=== PATIENT | female | born 1950 | race American Indian/Alaskan Native ===

== ENCOUNTER 2017-07-05 11:21 | Emergency (ER) | payer BC ==
[2017-07-05] MEDS ORDERED: PEPCID IV ONE (12:54)
[2017-07-05] MEDS ORDERED: TORADOL IV ONE (12:54)
--- NOTE | 2017-07-05 12:56 | Emergency Department Report ---
Blank Doc - Documentation Documentation: Patient is a 66-year-old black female with past medical history of hysterectomy secondary to uterine fibroids but otherwise no additional abdominal surgeries who presented with abdominal pain. Patient states that for the past 3-4 days she has had epigastric pain that she just states it is a sharp burning sensation that is constant but sometimes does heighten in severity. Patient is has just very mild nausea but no vomiting. Patient states that 5 days ago she had a day and half of diarrhea and now is having this pain. Patient has had no history of recent bloody bowel movements. Patient denies any fevers chills cough chest pain at this time. Patient removed to a treatment area to get Ms. for symptomatic relief we'll also check labs and CT abdomen and pelv to rule out acute life-threatening condition. Patient V reassessment HARLEEN. Is
[2017-07-05 13:15] LABS: Basophils % (Auto) 0.7 % (0.0-1.8); Eosinophils # (Auto) 0.2 K/mm3 (0.0-0.4); Eosinophils % (Auto) 3.2 % (0.0-4.3); Hematocrit 42.1 % (30.3-42.9); Hemoglobin 13.6 gm/dl (10.1-14.3); Lymphocytes # (Auto) 2.2 K/mm3 (1.2-5.4); Lymphocytes % (Auto) 45.1 % (13.4-35.0); Mean Corpuscular HGB Conc 32 % (30-34); Mean Corpuscular Hemoglobin 30 pg (28-32); Mean Corpuscular Volume 92 fl (79-97); Monocytes # (Auto) 0.7 K/mm3 (0.0-0.8); Platelet Count 252 K/mm3 (140-440); Red Blood Count 4.56 M/mm3 (3.65-5.03); Red Cell Distribution Width 13.8 % (13.2-15.2)
[2017-07-05 13:34] LABS: Alanine Aminotransferase 13 units/L (7-56); BUN/Creatinine Ratio 20; Blood Urea Nitrogen 14 mg/dL (7-17); Calcium 8.9 mg/dL (8.4-10.2); Hemolysis Index 8; Lipase 23 units/L (13-60)
--- NOTE | 2017-07-05 14:37 | Cat Scan Report ---
CT ABDOMEN PELVIS WITH CONTRAST: HISTORY: abdominal pain. COMPARISON: none. TECHNIQUE: Helical CT in 1.25mm intervals following IV contrast. Sagittal and coronal reconstructions. FINDINGS: Lung bases: Normal. Liver: Normal. Biliary system: Normal. Pancreas: Normal. Spleen: Normal. Kidneys/ureters/bladder: Normal. Adrenal glands: Normal. Aorta: Normal. Intestines: Normal. Appendix: Normal. Pelvic viscera: Normal. Ascites: None. Adenopathy: None. Musculoskeletal: Normal. IMPRESSION: Unremarkable CT scan of the abdomen and pelvis with contrast.
--- NOTE | 2017-07-05 14:45 | Emergency Department Report ---
ED Abdominal Pain HPI - General Chief Complaint: Abdominal Pain Stated Complaint: ABD PAIN Time Seen by Provider: 07/05/17 12:49 Source: patient Mode of arrival: Ambulatory Limitations: No Limitations - History of Present Illness Initial Comments: Patient is a 66-year-old black female with past medical history of hysterectomy secondary to uterine fibroids but otherwise no additional abdominal surgeries who presented with abdominal pain. Patient states that for the past 3-4 days she has had epigastric pain that she just states it is a sharp burning sensation that is constant but sometimes does heighten in severity. Patient is has just very mild nausea but no vomiting. Patient states that 5 days ago she had a day and half of diarrhea and now is having this pain. Patient has had no history of recent bloody bowel movements. Patient denies any fevers chills cough chest pain at this time. Nothing makes pain better and nothing makes it worse. Pain is 10 out of 10, burning sensation. She says she did not take any medication. She does have a primary care physician whom she did not call. MD Complaint: abdominal pain Onset/Timin -: days(s) Location: epigastric Radiation: none Migration to: no migration Severity: severe Severity scale (0 -10): 10 Quality: burning Consistency: constant Improves With: nothing Worsens With: eating Context: other (unknown) Associated Symptoms: nausea, diarrhea. denies: vomiting, fever, chills, constipation, dysuria, hematemesis, hematochezia, melena, hematuria, anorexia, syncope Treatments Prior to Arrival: other (none) - Related Data Previous Rx's Medication Instructions Recorded Last Taken Type Ciprofloxacin HCl [Cipro] 500 mg PO Q12H 5 Days #10 tablet 07/05/17 Unknown Rx Dicyclomine [Bentyl] 40 mg PO Q8H PRN #12 tablet 07/05/17 Unknown Rx Omeprazole 40 mg PO DAILY 30 Days #30 07/05/17 Unknown Rx capsule. Ondansetron [Zofran Odt] 4 mg PO Q6H PRN #12 tab.rapdis 07/05/17 Unknown Rx Allergies Allergy/AdvReac Type Severity Reaction Status Date / Time No Known Allergies Allergy Unverified 03/25/14 14:34 ED Review of Systems ROS: Stated complaint: ABD PAIN Other details as noted in HPI Comment: All other systems reviewed and negative Constitutional: no symptoms reported ENT: denies: throat pain Respiratory: no symptoms reported Cardiovascular: denies: chest pain, palpitations, dyspnea on exertion, edema, syncope Gastrointestinal: abdominal pain, nausea, diarrhea. denies: vomiting, constipation, hematemesis, melena, hematochezia Genitourinary: denies: dysuria, hematuria Musculoskeletal: denies: back pain, joint swelling, arthralgia, myalgia Skin: denies: rash Neurological: denies: headache, weakness, numbness, paresthesias, abnormal gait , vertigo ED Past Medical Hx - Past Medical History Previous Medical History?: Yes Hx Diabetes: Yes Hx Arthritis: Yes (right knee) - Surgical History Past Surgical History?: Yes Additional Surgical History: Removal of fibroid tumors, Hysterectomy - Family History Family history: hypertension - Social History Smoking Status: Former Smoker Substance Use Type: Alcohol - Medications Home Medications: Home Medications Medication Instructions Recorded Confirmed Last Taken Type Ciprofloxacin HCl [Cipro] 500 mg PO Q12H 5 Days #10 tablet 07/05/17 Unknown Rx Dicyclomine [Bentyl] 40 mg PO Q8H PRN #12 tablet 07/05/17 Unknown Rx Omeprazole 40 mg PO DAILY 30 Days #30 07/05/17 Unknown Rx capsule. Ondansetron [Zofran Odt] 4 mg PO Q6H PRN #12 tab.rapdis 07/05/17 Unknown Rx ED Physical Exam - General Limitations: No Limitations General appearance: alert, in no apparent distress - Head Head exam: Present: atraumatic, normocephalic, normal inspection - Eye Eye exam: Present: normal appearance, PERRL, EOMI Pupils: Present: normal accommodation - ENT ENT exam: Present: normal exam, normal orophraynx, mucous membranes moist, TM's normal bilaterally, normal external ear exam - Neck Neck exam: Present: normal inspection, full ROM, other (no C-spine tenderness). Absent: tenderness, lymphadenopathy - Respiratory Respiratory exam: Present: normal lung sounds bilaterally. Absent: respiratory distress, chest wall tenderness - Cardiovascular Cardiovascular Exam: Present: regular rate, normal rhythm, normal heart sounds - GI/Abdominal GI/Abdominal exam: Present: soft, normal bowel sounds. Absent: distended, tenderness, guarding, rebound, rigid, organomegaly, mass, bruit, pulsatile mass , hernia - Extremities Exam Extremities exam: Present: normal inspection, full ROM, normal capillary refill , other (no clubbing, cyanosis or edema. +2 pulses throughout extremities and no neurovascular compromise). Absent: tenderness, pedal edema, joint swelling, calf tenderness - Neurological Exam Neurological exam: Present: alert, oriented X3, normal gait - Psychiatric Psychiatric exam: Present: normal affect, normal mood - Skin Skin exam: Present: warm, dry, intact, normal color. Absent: rash ED Course Vital Signs 07/05/17 07/05/17 11:26 13:38 Temperature 97.9 F Pulse Rate 60 Respiratory 18 18 Rate Blood Pressure 140/62 O2 Sat by Pulse 99 Oximetry - Reevaluation(s) Reevaluation #1: 07/05/17 14:56 She has screened by Dr. Donal Davis. Patient received Toradol 15 mg IV and Pepcid [address] scan of the abdomen and pelvis shows no acute abnormalities. She says she feels better with pain medication and she is awaiting urinalysis to be collected and sent. Patient able to tolerate oral fluids in the emergency room 07/05/17 16:23 07/05/17 16:26 Reevaluation #2: 07/05/17 16:23 Upon reevaluation, abdominal pain patient said she feels a lot better. She says the medication that she got relieved her stomach pain. ED Medical Decision Making - Lab Data Result diagrams: 07/05/17 12:48 07/05/17 12:48 Lab Results 07/05/17 07/05/17 07/05/17 Range/Units 11:28 12:48 12:48 WBC 4.8 (4.5-11.0) K/mm3 RBC 4.56 (3.65-5.03) M/mm3 Hgb 13.6 (10.1-14.3) gm/dl Hct 42.1 (30.3-42.9) % MCV 92 (79-97) fl MCH 30 (28-32) pg MCHC 32 (30-34) % RDW 13.8 (13.2-15.2) % Plt Count 252 (140-440) K/mm3 Lymph % (Auto) 45.1 H (13.4-35.0) % Menard % (Auto) 14.0 H (0.0-7.3) % Eos % (Auto) 3.2 (0.0-4.3) % Baso % (Auto) 0.7 (0.0-1.8) % Lymph # 2.2 (1.2-5.4) K/mm3 Menard # 0.7 (0.0-0.8) K/mm3 Eos # 0.2 (0.0-0.4) K/mm3 Baso # 0.0 (0.0-0.1) K/mm3 Seg Neutrophils % 37.0 L (40.0-70.0) % Seg Neutrophils # 1.8 (1.8-7.7) K/mm3 Sodium 139 (137-145) mmol/L Potassium 4.0 (3.6-5.0) mmol/L Chloride 99.5 (98-107) mmol/L Carbon Dioxide 24 (22-30) mmol/L Anion Gap 20 mmol/L BUN 14 (7-17) mg/dL Creatinine 0.7 (0.7-1.2) mg/dL Estimated GFR > 60 ml/min BUN/Creatinine Ratio 20 % Glucose 97 (65-100) mg/dL POC Glucose 109 H (70-105) Calcium 8.9 (8.4-10.2) mg/dL Total Bilirubin 0.40 (0.1-1.2) mg/dL AST 18 (5-40) units/L ALT 13 (7-56) units/L Alkaline Phosphatase 74 (35-129) units/L Total Protein 7.1 (6.3-8.2) g/dL Albumin 4.0 (3.9-5) g/dL Albumin/Globulin Ratio 1.3 % Lipase 23 (13-60) units/L Urine Color (Yellow) Urine Turbidity (Clear) Urine pH (5.0-7.0) Ur Specific [place] (1.003-1.030) Urine Protein (Negative) mg/dL Urine Glucose (UA) (Negative) mg/dL Urine Ketones (Negative) mg/dL Urine Blood (Negative) Urine Nitrite (Negative) Urine Bilirubin (Negative) Urine Urobilinogen (<2.0) mg/dL Ur Leukocyte Esterase (Negative) Urine WBC (Auto) (0.0-6.0) /HPF Urine RBC (Auto) (0.0-6.0) /HPF U Epithel Cells (Auto) (0-13.0) /HPF Urine Mucus /HPF // Range/Units 15:40 WBC (4.5-11.0) K/mm3 RBC (3.65-5.03) M/mm3 Hgb (10.1-14.3) gm/dl Hct (30.3-42.9) % MCV (79-97) fl MCH (28-32) pg MCHC (30-34) % RDW (13.2-15.2) % Plt Count (140-440) K/mm3 Lymph % (Auto) (13.4-35.0) % Menard % (Auto) (0.0-7.3) % Eos % (Auto) (0.0-4.3) % Baso % (Auto) (0.0-1.8) % Lymph # (1.2-5.4) K/mm3 Menard # (0.0-0.8) K/mm3 Eos # (0.0-0.4) K/mm3 Baso # (0.0-0.1) K/mm3 Seg Neutrophils % (40.0-70.0) % Seg Neutrophils # (1.8-7.7) K/mm3 Sodium (137-145) mmol/L Potassium (3.6-5.0) mmol/L Chloride (98-107) mmol/L Carbon Dioxide (22-30) mmol/L Anion Gap mmol/L BUN (7-17) mg/dL Creatinine (0.7-1.2) mg/dL Estimated GFR ml/min BUN/Creatinine Ratio % Glucose (65-100) mg/dL POC Glucose (70-105) Calcium (8.4-10.2) mg/dL Total Bilirubin (0.1-1.2) mg/dL AST (5-40) units/L ALT (7-56) units/L Alkaline Phosphatase (35-129) units/L Total Protein (6.3-8.2) g/dL Albumin (3.9-5) g/dL Albumin/Globulin Ratio % Lipase (13-60) units/L Urine Color Yellow (Yellow) Urine Turbidity Clear (Clear) Urine pH 5.0 (5.0-7.0) Ur Specific [place] 1.060 H (1.003-1.030) Urine Protein <15 mg/dl (Negative) mg/dL Urine Glucose (UA) Neg (Negative) mg/dL Urine Ketones Tr (Negative) mg/dL Urine Blood Mod (Negative) Urine Nitrite Neg (Negative) Urine Bilirubin Neg (Negative) Urine Urobilinogen < 2.0 (<2.0) mg/dL Ur Leukocyte Esterase Sm (Negative) Urine WBC (Auto) 6.0 (0.0-6.0) /HPF Urine RBC (Auto) 3.0 (0.0-6.0) /HPF U Epithel Cells (Auto) 7.0 (0-13.0) /HPF Urine Mucus Few /HPF Urine culture pending - Radiology Data Radiology results: report reviewed CT scan of the abdomen and pelvis with IV contrast revealed normal exam without any acute abnormalities - Medical Decision Making ED course: Patient here complaining abdominal pain with some nausea over 5 days. Pain located to epigastric area and burning. CT scan of the abdomen and pelvis reveal no acute abnormalities please refer to radiology section for details. Laboratory to include CBC stable, chemistry is stable and urinalysis with trace ketone, moderate blood and small amount of leukocyte Estrace. Patient orally hydrated in the emergency room and tolerated well without any nausea or vomiting. She was given Toradol 20 mg IV and Pepcid 20 mg IV. She says she feels better and her pain is gone. Patient with dyspepsia and bladder infection. I discussed CT results and laboratory results the patient along with diagnosis and treatment plan and the need to follow up with her primary care physician and she voiced understanding. Patient discharged home with prescription for prilosec, Zofran, Bentyl and Cipro. Critical care attestation.: If time is entered above; I have spent that time in minutes in the direct care of this critically ill patient, excluding procedure time. ED Disposition Clinical Impression: Acute cystitis with hematuria, Dyspepsia, Nausea alone Abdominal pain Qualifiers: Abdominal location: epigastric Qualified Code(s): R10.13 - Epigastric pain Disposition: - TO HOME OR SELFCARE Is pt being admited?: No Does the pt Need Aspirin: No Condition: Stable Instructions: Abdominal Pain (ED), Gastroesophageal Reflux Disease (ED), Urinary Tract Infection in Women (ED), Acute Nausea and Vomiting (ED) Additional Instructions: Please follow up with stomach doctor as instructed and discharge instruction paperwork Antibiotic for bladder infection Take omeprazole for acid reflux Take Zofran for nausea Increased fluid intake to 2 L of water daily to prevent dehydration. Prescriptions: Ciprofloxacin HCl [Cipro] 500 mg PO Q12H 5 Days #10 tablet Dicyclomine [Bentyl] 40 mg PO Q8H PRN #12 tablet PRN Reason: stomach upset Omeprazole 40 mg PO DAILY 30 Days #30 capsule. Ondansetron [Zofran Odt] 4 mg PO Q6H PRN #12 tab.rapdis PRN Reason: Nausea And Vomiting Referrals: PRIMARY CARE, [Primary Care Provider] - 07/07/17 [facility] [Outside] - 07/07/17 [facility] [Provider Group] - 07/07/17 Forms: Accompanied Note, Work/School Release Form(ED)
[2017-07-05 15:57] LABS: Bilirubin,Urine NEG (Negative); Blood,Urine MOD (Negative); Color,Urine Yellow (Yellow); Mucus,Urine FEW /HPF; Protein,Urine <15 mg/dL mg/dL (Negative); Urobilinogen,Urine < 2.0 mg/dL (<2.0)
[2017-07-05 16:54] VITALS: BP 138/72
== END 2017-07-05 16:54 | disposition home or self-care (01) ==
LOC: ED 11:21
DX: N30.01 Acute cystitis with hematuria (principal); E11.9 Type 2 diabetes mellitus without complications; M17.11 Unilateral primary osteoarthritis, right knee; R19.7 Diarrhea, unspecified; Z87.891 Personal history of nicotine dependence; Z90.710 Acquired absence of both cervix and uterus
CPT/HCPCS: 36415; 74177; 80053; 81001; 82962; 83690; 85025; 87086; 96374; 96375; 99284; J1885; Q9967

== ENCOUNTER 2019-02-18 16:17 | Emergency (ER) | payer BC ==
[2019-02-18 18:08] VITALS: BP 114/78
--- NOTE | 2019-02-18 18:08 | Emergency Department Report ---
Blank Doc - Documentation Documentation: 68-year-old female that presents with URI symptoms. This initial assessment/diagnostic orders/clinical plan/treatment(s) is/are subject to change based on patient's health status, clinical progression and re- assessment by fellow clinical providers in the ED. Further treatment and workup at subsequent clinical providers discretion. Patient/guardians urged not to elope from the ED as their condition may be serious if not clinically assessed and managed. Initial orders include: 1- Patient sent to [facility] for further evaluation and treatment 2- CXR
--- NOTE | 2019-02-18 19:20 | XRay Report ---
CHEST 2 VIEWS INDICATION: cough. COMPARISON: 04/28/2009. FINDINGS: Support devices: None. Heart: Within normal limits. Lungs/Pleura: No acute air space or interstitial disease. No significant pleural effusion. IMPRESSION: No acute findings. Signer Name: Venancio Logan MD Signed: 02/18/2019 7:16 PM Workstation Name: [id number]
--- NOTE | 2019-02-18 19:55 | Emergency Department Report ---
- General Chief Complaint: Upper Respiratory Infection Stated Complaint: COUGH/STOMACH PAIN Time Seen by Provider: 02/18/19 18:07 Source: patient Mode of arrival: Ambulatory Limitations: No Limitations - History of Present Illness Initial Comments: patient is a 68-year-old female presents emergency room with complaints of URI symptoms that began a week ago. She has associated dry cough, rhinorrhea, congestion, dry throat, voice hoarseness. She denies any productive cough or fever. She does not report any chest pain, shortness of breath, abdominal pain, nausea, vomiting. She states she is a nonsmoker. She states her only past medical history is asthma but has not had an exacerbation since the . She denies any allergies medications. - Related Data Previous Rx's Medication Instructions Recorded Last Taken Type Ciprofloxacin HCl [Cipro] 500 mg PO Q12H 5 Days #10 tablet 07/05/17 Unknown Rx Dicyclomine [Bentyl] 40 mg PO Q8H PRN #12 tablet 07/05/17 Unknown Rx Omeprazole 40 mg PO DAILY 30 Days #30 07/05/17 Unknown Rx capsule. Ondansetron [Zofran Odt] 4 mg PO Q6H PRN #12 tab.rapdis 07/05/17 Unknown Rx Cetirizine HCl [Zyrtec 10mg tab] 10 mg PO DAILY #14 tablet 02/18/19 Unknown Rx Fluticasone [Flonase] 1 spray NS QDAY #1 bottle 02/18/19 Unknown Rx guaiFENesin/DEXTROMETHORPHAN 10 ml PO Q6HR PRN #1 bottle 02/18/19 Unknown Rx [Robitussin Cough-Chest Dm Liq] predniSONE [Deltasone] 40 mg PO QDAY 5 Days #10 tab 02/18/19 Unknown Rx Allergies Allergy/AdvReac Type Severity Reaction Status Date / Time No Known Allergies Allergy Unverified 03/25/14 14:34 ED Review of Systems ROS: Stated complaint: COUGH/STOMACH PAIN Other details as noted in HPI Comment: All other systems reviewed and negative ED Past Medical Hx - Past Medical History Previous Medical History?: Yes Hx Diabetes: Yes Hx Arthritis: Yes (right knee) - Surgical History Past Surgical History?: Yes Additional Surgical History: Removal of fibroid tumors, Hysterectomy - Social History Smoking Status: Never Smoker Substance Use Type: Alcohol - Medications Home Medications: Home Medications Medication Instructions Recorded Confirmed Last Taken Type Ciprofloxacin HCl [Cipro] 500 mg PO Q12H 5 Days #10 tablet 07/05/17 Unknown Rx Dicyclomine [Bentyl] 40 mg PO Q8H PRN #12 tablet 07/05/17 Unknown Rx Omeprazole 40 mg PO DAILY 30 Days #30 07/05/17 Unknown Rx capsule. Ondansetron [Zofran Odt] 4 mg PO Q6H PRN #12 tab.rapdis 07/05/17 Unknown Rx Cetirizine HCl [Zyrtec 10mg tab] 10 mg PO DAILY #14 tablet 02/18/19 Unknown Rx Fluticasone [Flonase] 1 spray NS QDAY #1 bottle 02/18/19 Unknown Rx guaiFENesin/DEXTROMETHORPHAN 10 ml PO Q6HR PRN #1 bottle 02/18/19 Unknown Rx [Robitussin Cough-Chest Dm Liq] predniSONE [Deltasone] 40 mg PO QDAY 5 Days #10 tab 02/18/19 Unknown Rx ED Physical Exam - General Limitations: No Limitations General appearance: alert, in no apparent distress - Head Head exam: Present: atraumatic, normocephalic - Eye Eye exam: Present: normal appearance - ENT ENT exam: Present: normal orophraynx, mucous membranes moist - Respiratory Respiratory exam: Present: normal lung sounds bilaterally. Absent: respiratory distress, wheezes, rales, rhonchi, stridor, chest wall tenderness, accessory muscle use, decreased breath sounds, prolonged expiratory - Cardiovascular Cardiovascular Exam: Present: regular rate, normal rhythm, normal heart sounds. Absent: systolic murmur, diastolic murmur, rubs, gallop - Neurological Exam Neurological exam: Present: alert, oriented X3 - Psychiatric Psychiatric exam: Present: normal affect, normal mood - Skin Skin exam: Present: warm, dry, intact ED Course Vital Signs 02/18/19 18:07 Temperature 98.5 F Pulse Rate 63 Respiratory 18 Rate Blood Pressure 114/78 O2 Sat by Pulse 98 Oximetry ED Medical Decision Making - Radiology Data Radiology results: report reviewed CHEST 2 VIEWS INDICATION: cough. COMPARISON: 04/28/2009. FINDINGS: Support devices: None. Heart: Within normal limits. Lungs/Pleura: No acute air space or interstitial disease. No significant pleural effusion. IMPRESSION: No acute findings. Signer Name: Venancio Logan MD Signed: 02/18/2019 7:16 PM Workstation Name: [id number] Transcribed By: ES Dictated By: Venancio Logan MD Electronically Authenticated By: Venancio Logan MD Signed Date/Time: 02/18/191915 - Medical Decision Making patient is a 68-year-old female presents emergency room with complaints of URI symptoms that began a week ago. She has associated dry cough, rhinorrhea, congestion, dry throat, voice hoarseness. She denies any productive cough or fever. She does not report any chest pain, shortness of breath, abdominal pain, nausea, vomiting. She states she is a nonsmoker. She states her only past medical history is asthma but has not had an exacerbation since the . She denies any allergies medications. Vitals are normal. On exam normal or, normal breath sounds bilaterally without wheezing, rales, rhonchi, voice is hoarse. CXR with no acute findings. Patient is afebrile, no tachycardia, no productive cough, no shortness of breath, no clinical signs or symptoms of pneumonia or bronchitis. Patient's symptoms and examination consistent with viral URI and laryngitis. pt given prescription for Flonase, Zyrtec, steroids, Robitussin. Discussed supportive care with patient. advised pt to Please take medication as prescribed. May drink warm tea, warm soup broths, do warm saltwater gargles. May use a humidifier. follow up with a primary care doctor in the next 2-3 days for reexamination. Return to the emergency room for any new or worsening symptoms. - Differential Diagnosis URI, PNA, sinusitis, viral syndrome, pharyngitis, laryngitis Critical care attestation.: If time is entered above; I have spent that time in minutes in the direct care of this critically ill patient, excluding procedure time. ED Disposition Clinical Impression: Laryngitis Upper respiratory infection Qualifiers: URI type: unspecified URI Qualified Code(s): J06.9 - Acute upper respiratory infection, unspecified Disposition: DC- TO HOME OR SELFCARE Is pt being admited?: No Does the pt Need Aspirin: No Condition: Stable Instructions: Laryngitis (ED), Upper Respiratory Infection (ED) Additional Instructions: Please take medication as prescribed. May drink warm tea, warm soup broths, do warm saltwater gargles. May use a humidifier. follow up with a primary care doctor in the next 2-3 days for reexamination. Return to the emergency room for any new or worsening symptoms. Prescriptions: predniSONE [Deltasone] 40 mg PO QDAY 5 Days #10 tab Fluticasone [Flonase] 1 spray NS QDAY #1 bottle guaiFENesin/DEXTROMETHORPHAN [Robitussin Cough-Chest Dm Liq] 10 ml PO Q6HR PRN #1 bottle PRN Reason: cough Cetirizine HCl [Zyrtec 10mg tab] 10 mg PO DAILY #14 tablet Referrals: GREGORIO OHARA MD [Staff Physician] - 2-3 Days [facility] [Outside] - 2-3 Days Time of Disposition: 19:52 Print Language: SINHALA
== END 2019-02-18 20:00 | disposition home or self-care (01) ==
LOC: ED 16:17
DX: J06.9 Acute upper respiratory infection, unspecified (principal); E11.9 Type 2 diabetes mellitus without complications; F10.10 Alcohol abuse, uncomplicated; Z79.899 Other long term (current) drug therapy
CPT/HCPCS: 71046